=== PATIENT | female | born 1985 | race Caucasian/White ===

== ENCOUNTER → 2021-10-20 09:48 | Outpatient (CLI) | payer BC, SELFPAY ==
--- NOTE | ~2021-10-20 | US_ITS ---
EXAMINATION: US OB /maternal detail DATE: 10/20/2021 10:36 INDICATION: anatomic survey. TECHNIQUE: Real-time ultrasound of the pelvis was performed. COMPARISON: None. FINDINGS: There is a single living fetus in transverse lie. The placenta is posterior, 4.5 cm from the cervix. The cervical length is 4.1 cm on transabdominal images. heart rate is 141 beats per minute (bp m). The amniotic fluid volume is subjectively normal. The following biometric data were obtained: Biparietal diameter (BPD): 4.9 cm; head circumference (HC): 17.9 cm; abdominal circumference (AC): 15 .6 cm; femur length (FL): 3.3 cm. These measurements are concordant. Estimated weight is 357 g +/- 54 g, which correlates with the 26th percentile when 03/03/22 is us ed as estimated date of delivery. As single measurements, these parameters are each equal to the following estimated gestational ages: BPD: 20 weeks 6 days. HC: 20 weeks 3 days. AC: 20 weeks 5 days. FL: 20 weeks 1 days. estimated gestational age based solely on measurements from this exam is 20 weeks 4 days +/- 1 weeks 3 days. The cerebral ventricles, cerebellum, cisterna magna, nuchal fold, lip, and visualized portions of the spine are normal. The heart is normal. The diaphragm, stomach, kidneys, and bladder are normal. Ther e are two umbilical arteries to yield a 3-vessel cord. The cord insertion is normal. IMPRESSION: 1. Single living fetus in transverse lie. 2. Estimated weight is 357 g +/- 54 g, which correlates with the 26th percentile when 03/03/22 i s used as estimated date of delivery. 3. Normal anatomic survey. Reviewed, dictated and finalized at location A. IMPRESSION: 1. Single living fetus in transverse lie. 2. Estimated weight is 357 g +/- 54 g, which correlates with the 26th pe rcentile when 03/03/22 is used as estimated date of delivery. 3. Normal anatomic survey.
== END ==
PROVIDERS: PCP Obstetrics & Gynecology; Visit Provider Obstetrics & Gynecology
DX: Z36.89 Encounter for other specified antenatal screening (principal); Z34.92 Encounter for supervision of normal pregnancy, unspecified, second trimester; Z3A.20 20 weeks gestation of pregnancy
CPT/HCPCS: 76805